=== PATIENT | male | born 1945 | race American Indian/Alaskan Native ===

== ENCOUNTER 2016-12-24 08:14 | Outpatient (CLI) | payer MEDICARE ==
--- NOTE | 2016-12-26 09:21 | Nuclear Medicine Report ---
NUCLEAR MEDICINE THYROID UPTAKE MULTIPLE History: Thyroid nodule. Findings: No comparison at this facility. There is homogeneous uptake of the radiotracer throughout the thyroid gland. No hot or cold nodules demonstrated. 4 hour uptake measures 5.4%. Normal range 4-18%. 24 hour uptake measures 15.9%. Normal range 18-36%. Impression: No hot or cold thyroid defect is appreciated on nuclear medicine. Slightly decreased 24 hour uptake value as described.
== END 2016-12-24 08:15 | disposition home or self-care (01) ==
LOC: NM 08:14
PROVIDERS: ATTEND Surgery
DX: E04.1 Nontoxic single thyroid nodule (principal); I10 Essential (primary) hypertension; J44.9 Chronic obstructive pulmonary disease, unspecified; J45.909 Unspecified asthma, uncomplicated; E03.9 Hypothyroidism, unspecified; Z87.891 Personal history of nicotine dependence; Z79.899 Other long term (current) drug therapy
CPT/HCPCS: 78012; A9516